=== PATIENT | male | born 1975 | race Caucasian/White ===

== ENCOUNTER 2023-04-11 19:07 | Emergency (ER) | payer OTHER ==
[2023-04-11 19:54] LABS: Absolute Lymphocytes (CBC) 1.7 K/uL (0.7-4.9); Hematocrit 39.4 % (39.6-49.0); Lymphocytes % 32.4 % (15.3-44.8); MCV 98.1 fL (80-100); MPV 6.4 fL (7.6-11.3); Platelets 154 thou/uL (152-406); RBC Red Blood Cell Count 4.01 M/uL (4.33-5.43)
[2023-04-11 20:22] LABS: Potassium 3.9 mEq/L (3.5-5.1); Troponin High Sensitivity 12.5 pg/mL (<58.9)
[2023-04-11 20:38] LABS: Albumin 4.1 g/dL (3.4-5.0); Bilirubin Direct 0.2 mg/dL (0-0.2); Bilirubin Indirect, Calculated 0.3 mg/dL (0.2-0.8); Bilirubin Total 0.5 mg/dL (0.2-1.0); Protein, Total 7.5 g/dL (6.4-8.2)
--- NOTE | 2023-04-11 21:10 | RAD REPORT ---
EXAM DESCRIPTION: Zackery Single View04/11/2023 8:03 pm CLINICAL HISTORY: Chest pain COMPARISON: none FINDINGS: The lungs appear clear of acute infiltrate. The heart is normal size IMPRESSION: No acute abnormalities displayed
--- NOTE | 2023-04-11 21:13 | RAD REPORT ---
EXAM DESCRIPTION: CT - Abdomen Pelvis W Contrast - 04/11/2023 8:52 pm CLINICAL HISTORY: Abdominal pain COMPARISON: none. TECHNIQUE: Computed axial tomography of the abdomen pelvis was obtained. 100 cc Isovue-300 was admin istered intravenously. Oral contrast was not requested which limits evaluation of bowel and appendix All CT scans are performed using dose optimization technique as appropriate and may include automated exposure control or mA/KV adjustment according to patient size. FINDINGS: Fatty liver The spleen, pancreas, adrenal and kidneys appear unremarkable. There is no evidence of diverticulitis. IMPRESSION: Fatty liver
--- NOTE | 2023-04-11 22:22 | ER ---
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 Pt states that when the pain started it radiated up his throat and he got sick to his stomach. Pt states that his pain has resolved at this time. Pt reports drinking 7 beers tonight. Coronavirus screen: Vaccine status: Patient reports receiving the 2nd dose of the covid vaccine. Ebola Screen: Patient denies travel to an Ebola-affected area in the 21 days before illness onset. No symptoms or risks identified at this time. Initial Sepsis Screen: Does the patient meet any 2 criteria? No. Patient's initial sepsis screen is negative. Does the patient have a suspected source of infection? No. Patient's initial sepsis screen is negative. Risk Assessment: Do you want to hurt yourself or someone else? Patient reports no desire to harm self or others. Onset of symptoms was April 11, 2023. 19:11 Method Of Arrival: Wheelchair cm10 19:11 Acuity: LYRIC 2 cm10 Triage Assessment: 19:15 General: Appears in no apparent distress. comfortable, Behavior is calm, cooperative. cm10 Cardiovascular: No deficits noted. 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 Historical: - Allergies: 19:13 Percocet; cm10 - Home Meds: 19:13 None [Active]; cm10 - PMHx: 19:13 Hypertensive disorder; cm10 - PSHx: 19:13 Right knee; right ankle; cm10 - Immunization history:: Adult Immunizations unknown. - Social history:: Smoking status: Patient denies any tobacco usage or history of. Patient uses alcohol, on a daily basis. Screenin:55 [facility] ED Fall Risk Assessment (Adult) History of falling in the last 3 months, rv including since admission No falls in past 3 months (0 pts) Confusion or Disorientation No (0 pts) Intoxicated or Sedated No (0 pts) Impaired Gait No (0 pts) Mobility Assist Device Used No (0 pt) Altered Elimination No (0 pt) Score/Fall Risk Level 0 - 2 = Low Risk Oriented to surroundings, Maintained a safe environment, Educated pt \T\ family on fall prevention, incl call for assistance when getting out of bed, Assessed \T\ reinforced patient's understanding of fall precautions, Provided non-skid footwear, Hourly rounding (assess needs \T\ fall precautionary measures) done, Used ambulatory aids as needed (educated on \T\ assisted with), Used gait belt as appropriate. Abuse screen: Denies threats or abuse. Denies injuries from another. Nutritional screening: No deficits noted. Tuberculosis screening: No symptoms or risk factors identified. Assessment: 19:54 General: Appears comfortable, Behavior is calm, cooperative. Pain: Complains of pain in rv chest Pain does not radiate. Pain began suddenly. Neuro: Level of Consciousness is awake, alert, obeys commands, Oriented to person, place, time, situation. Cardiovascular: Chest pain quality is pressure. Respiratory: Airway is patent Respiratory effort is even, unlabored, Breath sounds are clear bilaterally. 21:00 Reassessment: Patient appears in no apparent distress at this time. Patient and/or jb4 family updated on plan of care and expected duration. Pain level reassessed. Patient is alert, oriented x 3, equal unlabored respirations, skin warm/dry/pink. 22:00 Reassessment: Patient appears in no apparent distress at this time. Patient and/or jb4 family updated on plan of care and expected duration. Pain level reassessed. Patient is alert, oriented x 3, equal unlabored respirations, skin warm/dry/pink. Vital Signs: 19:11 Weight 77.11 kg; Height 5 ft. 6 in. ; Pain 0/10; cm10 19:15 BP 163 / 110; Pulse 90; Resp 16; Temp 98.2; Pulse Ox 98% ; cm10 19:53 BP 159 / 109; Pulse 79; Resp 17; Pulse Ox 100% on R/A; rv 22:00 BP 117 / 70; Pulse 75; Resp 16; Pulse Ox 99% on R/A; jb4 19:11 Body Mass Index 27.44 (77.11 kg, 167.64 cm) cm10 19:11 Pain Scale: Adult cm10 ED Course: 19:11 Patient arrived in ED. cm10 19:13 Triage completed. cm10 19:15 Arm band placed on Patient placed in an exam room, on a stretcher. EKG completed in cm10 triage. Results shown to MD. 19:21 Nelson Melvin DO is Attending Physician. ms3 19:43 Navin Soler, RN is Primary Nurse. rv 19:46 Inserted saline lock: 20 gauge in right antecubital area, using aseptic technique. rv1 Blood collected. 19:47 Lipase Sent. rv1 19:47 Hepatic Function Sent. rv1 19:47 Basic Metabolic Panel Sent. rv1 19:47 CBC with Diff Sent. rv1 19:47 Magnesium Sent. rv1 19:47 Troponin HS Sent. rv1 19:55 Patient has correct armband on for positive identification. Placed in gown. Bed in low rv position. Call light in reach. Client placed on continuous cardiac and pulse oximetry monitoring. NIBP monitoring applied. color television console monitor on. 19:56 Provided Education on: CHEST PAIN. rv 19:56 Patient maintains SpO2 saturation greater than 95% on room air. rv 20:05 XRAY Chest (1 view) In Process Unspecified. EDMS 20:53 CT Abd/Pelvis - IV Contrast Only In Process Unspecified. EDMS 20:56 Attending Physician role handed off by Nelson Melvin DO sp4 20:56 Jose Jeffery MD is Attending Physician. sp4 22:29 No provider procedures requiring assistance completed. IV discontinued, intact, jb4 bleeding controlled, No redness/swelling at site. Pressure dressing applied. Administered Medications: 19:35 CANCELLED (Physician Discretion): Aspirin PO Chewable Tablet 324 mg PO once; 81 mg pf1 tablets x 4 Medication: 19:56 VIS not applicable for this client. rv Outcome: 22:21 Discharge ordered by MD. sp4 22:29 Discharged to home ambulatory. jb4 22:29 Condition: stable 22:29 Discharge instructions given to patient, Instructed on discharge instructions, follow up and referral plans. Demonstrated understanding of instructions, follow-up care. 22:30 Patient left the ED. jb4 Signatures: Dispatcher [employer] EDMS Carmelo Suggs RN RN jb4 Navin Soler, SUNDAR RN rv Nelson Melvin DO DO ms3 Flora Arnett rv1 Jose Jeffery MD MD sp4 Kamala Blair RN RN cm10 Felicitas Anderson RN pf1 Corrections: (The following items were deleted from the chart) :13 19:11 Chief complaint: Patient states: chest pain to the center of his chest that he cm10 describes as pressure. Pt states that when the pain started it radiated up his throat and he got sick to his stomach. Pt states that his pain has resolved at this time. 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 Pt states that when the pain started it radiated up his throat and he got sick to his stomach. Pt states that his pain has resolved at this time. [facility] :14 19:13 PSHx: None; 10 [facility] 19:55 19:54 Cardiovascular: Chest pain quality is rv rv
--- NOTE | 2023-04-11 22:23 | EDPHYS ---
Physician Documentation [facility] Name: Asael Guzman Age: 47 yrs Sex: Male : 1975 Arrival Date: 04/11/2023 Time: 19:07 Bed 8 Private MD: ED Physician Jose Jeffery HPI: 04/11 19:51 This 47 yrs old Male presents to ER via Wheelchair with complaints of Chest Pain. ms3 19:51 47-year-old male with past medical history of hypertension and pancreatitis presents ms3 for chest pain that began approximately 45 minutes prior to arrival. Patient states the pain was pressure located in the substernal region. Patient denies pain at this time. Patient states that during the episode he developed nausea, vomiting, diaphoresis. Patient received 325 mg aspirin prior to arrival. Historical: - Allergies: 19:13 Percocet; cm10 - Home Meds: 19:13 None [Active]; cm10 - PMHx: 19:13 Hypertensive disorder; cm10 - PSHx: 19:13 Right knee; right ankle; cm10 - Immunization history:: Adult Immunizations unknown. - Social history:: Smoking status: Patient denies any tobacco usage or history of. Patient uses alcohol, on a daily basis. ROS: 19:51 Constitutional: Negative for fever, and chills. Neck: Negative for injury, pain, and ms3 swelling. 19:51 Respiratory: Negative for shortness of breath, cough, wheezing, and pleuritic chest pain. 19:51 MS/Extremity: Negative for injury and deformity, Skin: Negative for injury, rash, and discoloration. 19:51 Cardiovascular: Positive for chest pain. 19:51 Abdomen/GI: Positive for abdominal pain, nausea and vomiting. 19:51 All other systems are negative. Exam: 19:51 Constitutional: This is a well developed, well nourished patient who is awake, alert, ms3 and in no acute distress. Head/Face: Normocephalic, atraumatic. Neck: Trachea midline, no cervical lymphadenopathy. Supple, full range of motion without nuchal rigidity, or vertebral point tenderness. No Meningismus. Chest/axilla: Normal chest wall appearance and motion. Nontender with no deformity. Cardiovascular: Regular rate and rhythm with a normal S1 and S2. No gallops, murmurs, or rubs. Normal PMI, no JVD. No pulse deficits. Respiratory: Lungs have equal breath sounds bilaterally, clear to auscultation and percussion. No rales, rhonchi or wheezes noted. No increased work of breathing, no retractions or nasal flaring. 19:51 Skin: Warm, dry with normal turgor. Normal color with no rashes, no lesions, and no evidence of cellulitis. MS/ Extremity: Pulses equal, no cyanosis. Neurovascular intact. Full, normal range of motion. 19:51 Abdomen/GI: Inspection: abdomen appears normal, Bowel sounds: normal, Palpation: moderate abdominal tenderness, in the epigastric area and left lower quadrant. 19:53 ECG was reviewed by the Attending Physician. ms3 Vital Signs: 19:11 Weight 77.11 kg; Height 5 ft. 6 in. ; Pain 0/10; cm10 19:15 BP 163 / 110; Pulse 90; Resp 16; Temp 98.2; Pulse Ox 98% ; cm10 19:53 BP 159 / 109; Pulse 79; Resp 17; Pulse Ox 100% on R/A; rv 22:00 BP 117 / 70; Pulse 75; Resp 16; Pulse Ox 99% on R/A; jb4 19:11 Body Mass Index 27.44 (77.11 kg, 167.64 cm) cm10 19:11 Pain Scale: Adult cm10 MDM: 19:35 Patient medically screened. ms3 19:51 Differential diagnosis: abnormal EKG, acute myocardial infarction, pancreatitis, ms3 Diverticulitis. 21:09 HEART Score: History: Slightly Suspicious (0), ECG: Normal (0), Age: > 45 and < 65 sp4 years (1), Risk Factors: No Risk Factors Known (0), Troponin: < or = 1 x Normal Limit (0), Total Score = 1. The patient was given aspirin in the Emergency Department. Data reviewed: vital signs, nurses notes. 21:10 ED course: Patient is a 47-year-old male with history of prior alcoholic pancreatitis sp4 currently states that he developed midsternal chest pain and came here primarily to make certain his heart is okay . Patient states he drinks up to 10 beers every day and has history of alcoholic pancreatitis 4 years ago. [facility] also [facility]. Patient states that he does not wish to stay in the hospital for management of his pancreatitis because he is starting new job in the morning and he wishes to be discharged after his workup is complete.. 22:18 ED course: Lead EKG is normal, EKG time 2207, normal sinus rhythm at a rate of 67. EKG sp4 reveals normal sinus rhythm no ST elevation or depression no ectopy overall normal intervals. Repeat troponin is negative. Patient has desiring discharge home. Patient was explained that he has signs of alcoholic pancreatitis also some mild hyponatremia secondary to extensive beer ingestion. However there is no sign of acute cardiac emergency. Patient will be advised to consume clear liquid diets. He will be given informed discharge prior to departure. Will advise for patient to return in case pain worsens.. 04/11 19:21 Order name: Basic Metabolic Panel; Complete Time: 20:33 ms3 04/11 19:21 Order name: CBC with Diff; Complete Time: 20:33 ms3 04/11 19:21 Order name: Magnesium; Complete Time: 20:33 ms3 04/11 19:21 Order name: Troponin HS; Complete Time: 20:33 ms3 04/11 19:35 Order name: Hepatic Function; Complete Time: 20:53 ms3 04/11 19:35 Order name: Lipase; Complete Time: 20:53 ms3 04/11 21:33 Order name: Troponin High Sensitivity; Complete Time: 22:14 sp4 04/11 19:21 Order name: XRAY Chest (1 view); Complete Time: 22:14 ms3 04/11 19:35 Order name: CT Abd/Pelvis - IV Contrast Only; Complete Time: 22:14 ms3 04/11 19:21 Order name: EKG; Complete Time: 19:22 ms3 04/11 21:33 Order name: EKG; Complete Time: 21:34 sp4 04/11 19:21 Order name: Cardiac monitoring; Complete Time: 19:44 ms3 04/11 19:21 Order name: EKG - Nurse/Tech; Complete Time: 19:44 ms3 04/11 19:21 Order name: IV Saline Lock; Complete Time: 19:44 ms3 04/11 19:21 Order name: Labs collected and sent; Complete Time: 19:44 ms3 04/11 19:21 Order name: O2 Per Protocol; Complete Time: 19:44 ms3 04/11 19:21 Order name: O2 Sat Monitoring; Complete Time: 19:44 ms3 04/11 21:33 Order name: EKG - Nurse/Tech; Complete Time: 22:18 sp4 EC:53 Rate is 93 beats/min. Rhythm is regular. QRS Martin is Normal. UT interval is normal. QRS ms3 interval is normal. Clinical impression: Normal ECG. Interpreted by me. Reviewed by me. Administered Medications: 19:35 CANCELLED (Physician Discretion): Aspirin PO Chewable Tablet 324 mg PO once; 81 mg pf1 tablets x 4 Disposition Summary: 04/11/23 22:21 Discharge Ordered Location: Home sp4 Condition: Stable sp4 Diagnosis - Other acute pancreatitis without necrosis or infection sp4 - Acute alcoholic pancreatitis, mild hyponatremia, atypical chest pain sp4 Followup: sp4 - With: Private Physician - When: 7 - 10 days - Reason: Recheck today's complaints Discharge Instructions: - Discharge Summary Sheet sp4 - Alcohol Use Disorder sp4 - Acute Pancreatitis, [id number] sp4 - Clear Liquid Diet, Adult, [id number] sp4 Forms: - Patient Portal Instructions sp4 Signatures: Dispatcher [employer] EDMS Nelson Melvin DO DO ms3 Jose Jeffery MD MD sp4 Kamala Blair RN RN cm10 Felicitas Anderson RN pf1 Corrections: (The following items were deleted from the chart) 19:14 19:13 PSHx: None; cm10 cm10 19:35 19:21 Aspirin PO Chewable Tablet 324 mg PO once; 81 mg tablets x 4 ordered. ms3 pf1
[2023-04-11 23:45] VITALS: TEMP 98.2
[2023-04-11 23:55] VITALS: BP 117/70; O2SAT 99
--- NOTE | 2023-04-13 18:13 | EKG ---
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
--- NOTE | 2023-04-13 18:14 | EKG ---
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
== END 2023-04-11 22:30 | disposition home or self-care (01) ==
LOC: ER 19:07
DX: K85.20 Alcohol induced acute pancreatitis without necrosis or infection (principal); E87.1 Hypo-osmolality and hyponatremia; I10 Essential (primary) hypertension; Z88.5 Allergy status to narcotic agent
CPT/HCPCS: 93005 ×2; 85025; 80048; 36415; 83735; 80076; 84484 ×2; 83690; 74177; 71045; 99285; Q9967

== ENCOUNTER 2024-05-16 11:33 | Emergency (ER) | payer OTHER ==
--- OUTSIDE RECORDS SUMMARY | 2024-05-16 11:37 | XMS REPORT | Continuity of Care Document ---
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
--- NOTE | 2024-05-16 13:14 | ER ---
Nurse's Notes [facility] Name: Asael Guzman Age: 48 yrs Sex: Male : 1975 Arrival Date: 05/16/2024 Time: 11:33 Bed IW3 Private MD: Diagnosis: Presentation: 05/16 11:40 Chief complaint: Patient states: [facility], has been iw having neck pain X 2 days, denies injury. Coronavirus screen: At this time, the client does not indicate any symptoms associated with coronavirus-19. Ebola Screen: No symptoms or risks identified at this time. Initial Sepsis Screen: Does the patient meet any 2 criteria? No. Patient's initial sepsis screen is negative. Does the patient have a suspected source of infection? No. Patient's initial sepsis screen is negative. Risk Assessment: Do you want to hurt yourself or someone else? Patient reports no desire to harm self or others. Onset of symptoms was May 14, 2024. 11:40 Method Of Arrival: Ambulatory iw 11:40 Acuity: LYRIC 3 iw Historical: - Allergies: 11:41 Percocet; iw - PMHx: 11:41 Hypertensive disorder; iw - PSHx: 11:41 Right Ankle; right knee; neck (right knee ); iw - Immunization history:: Adult Immunizations. - Infectious Disease History:: Denies. - Social history:: Smoking status: Reported history of juuling and/or vaping. Assessment: 12:40 Reassessment: pt brought back to triage room for eval. iw 13:02 Reassessment: pt not in triage room for provider evaluation. iw Vital Signs: 11:40 BP 162 / 110; Pulse 82; Resp 16; Temp 97.1; Pulse Ox 100% on R/A; Weight 72.57 kg; iw Height 5 ft. 6 in. ; Pain 5/10; 11:40 Body Mass Index 25.82 (72.57 kg, 167.64 cm) iw 11:40 Pain Scale: Adult iw ED Course: 11:35 Patient arrived in ED. mr 11:41 Triage completed. iw 11:42 Arm band placed on. iw 12:01 Twyla Christine MD is Attending Physician. sd2 Administered Medications: No medications were administered Outcome: 13:13 Patient left the ED. iw Signatures: Christal Mcwilliams, Reg Reg mr Prema Alejandre, RN RN iw Twyla Christine MD MD sd2 Corrections: (The following items were deleted from the chart) 11:44 11:40 Pulse 82bpm; Resp 16bpm; Pulse Ox 100% RA; Temp 97.1F; 72.57 kg; Height 5 ft. 6 iw in.; BMI: 25.8; Pain 5/10, Adult; iw
[2024-05-16 13:18] VITALS: BP 162/110; TEMP 97.1; O2SAT 100
== END 2024-05-16 13:13 | disposition left against medical advice (07) ==
LOC: ER 11:33
DX: Z53.21 Procedure and treatment not carried out due to patient leaving prior to being seen by health care provider (principal)
CPT/HCPCS: 99281